=== PATIENT | female | born 1985 | race African-American/Black ===

== ENCOUNTER 2022-07-14 01:16 | Emergency (ER) | payer MEDICAID, OTHER ==
[~2022-07-14] VITALS: Ht 165.1 cm; Wt 80.0 kg
[2022-07-14] MEDS ORDERED: METHOCARBAMOL 500MG TABLET PO ONE (02:30)
[2022-07-14] MEDS ORDERED: IBUPROFEN 600MG TABLET PO ONE (02:30)
[2022-07-14 02:58] VITALS: BP 123/87
[2022-07-14] MEDS ORDERED: IBUP-2029 MT (05:39)
[2022-07-14] MEDS ORDERED: METH-653 MT (05:39)
== END 2022-07-14 06:05 | disposition home or self-care (01) ==
LOC: ER 01:16
DX: M25.551 Pain in right hip (principal); M25.552 Pain in left hip; M25.532 Pain in left wrist; M79.672 Pain in left foot; G89.11 Acute pain due to trauma; V49.59XA Passenger injured in collision with other motor vehicles in traffic accident, initial encounter; Y93.89 Activity, other specified; Y92.488 Other paved roadways as the place of occurrence of the external cause
CPT/HCPCS: 73110; 73522; 73630; 81025; 99284